=== PATIENT | male | born 1985 | race Caucasian/White ===

== ENCOUNTER 2016-03-24 12:28 | Emergency (ER) | payer SELFPAY ==
[~2016-03-24] VITALS: Ht 193 cm; Wt 68.0 kg
[2016-03-24 12:34] VITALS: BP 136/71; PULSE 102; RESP 16; TEMP 98.3; O2SAT 98
--- NOTE | 2016-03-24 12:58 | PD ---
HPI Chief Complaint: OD/ Ingestion Time Seen by Provider: 12:36 Travel History International Travel<30 days: No Contact w/Intl Traveler<30days: No Traveled to known affect area: No History of Present Illness HPI 30-year-old male here after overdose. Patient was actually driving to [place] with his mother, when he injected heroin in the back seat and had a brief episode of unresponsiveness. By the time patient got just her April when he was alert and oriented, GCS 15. He admits to injecting heroin in the right hand. History of IV drug abuse. He denies any complaints at this time. [facility] Past Medical History Medical History: Denies Significant Hx Tetanus Vaccination: < 5 Years Past Surgical History Surgical History: No Previous Surgery Social History Alcohol Use: No Tobacco Use: Yes Substance Use: Yes (heroin) Allergies-Medications (Allergen,Severity, Reaction): Coded Allergies: No Known Allergies (Unverified , 03/24/16) Review of Systems Except as stated in HPI: all other systems reviewed are Neg Physical Exam Narrative GENERAL: Well-appearing male in no acute distress SKIN: Warm and dry. Tract moore on the arms, hands bilaterally HEAD: Normocephalic. EYES: Pupils equal and round. 4 mm No scleral icterus. No injection or drainage. ENT: No nasal bleeding or discharge. Mucous membranes pink and moist. NECK: Supple CARDIOVASCULAR: Regular rate and rhythm. No murmur appreciated. RESPIRATORY: No accessory muscle use. Clear to auscultation. Breath sounds equal bilaterally. GASTROINTESTINAL: Abdomen soft, non-tender, nondistended. MUSCULOSKELETAL: Normal gait NEUROLOGICAL: Awake and alert. Motor grossly within normal limits. Normal speech. PSYCHIATRIC: Poor insight and judgment. Depressed but no suicidal ideation or plan Data Data Last Documented VS Vital Signs Date Time Temp Pulse Resp B/P Pulse Ox O2 Delivery O2 Flow Rate FiO2 03/24/16 12:34 98.3 102 16 136/71 98 MDM Medical Decision Making Medical Screen Exam Complete: Yes Emergency Medical Condition: Yes Medical Record Reviewed: Yes Differential Diagnosis 30-year-old male here after recreational heroin overdose, accidental. Patient had brief episode of altered mental status but none not require any Narcan per EMS. He denies any long-acting opioid injection. Differential includes opiate overdose, recreational abuse, coingestions, patient denies any suicidal ideation or plan of harm. Narrative Course Patient monitored in our emergency department for 2 hours without any change in mentation and will be discharged to [facility] to treat for his substance abuse. Diagnosis Primary Impression: Heroin overdose Qualified Code: T40.1X1A - Heroin overdose, accidental or unintentional, initial encounter Referrals: [facility] Additional Instructions: Seek outpatient management for your chemical dependency. Med/Other Pt SpecificInfo: No Change to Meds Disposition: 01 DISCHARGE HOME Condition: Stable Leslee Soto MD Mar 24, 2016 12:58
[2016-03-24 15:30] VITALS: BP 122/74
== END 2016-03-24 15:31 | disposition home or self-care (01) ==
LOC: NEDAMB 12:28 → EDBD 12:28 → NEDAMB 15:31
DX: T40.1X1A Poisoning by heroin, accidental (unintentional), initial encounter (principal)
CPT/HCPCS: 99284